=== PATIENT | male | born 1960 | race Caucasian/White ===

== ENCOUNTER → 2019-08-28 13:33 | Outpatient (BNVA) | payer MEDICARE, MEDICAID, SELFPAY | PROVIDERS: PCP Family Medicine; Referring Provider Family Medicine; Visit Provider Student in an Organized Health Care Education/Training Program | DX: T84.028A Dislocation of other internal joint prosthesis, initial encounter; Z96.611 Presence of right artificial shoulder joint; E11.9 Type 2 diabetes mellitus without complications; Z79.4 Long term (current) use of insulin | CPT/HCPCS: 99204; 73030 ==

== ENCOUNTER 2019-08-28 13:49 | Outpatient (CLI) | payer MEDICARE, MEDICAID, SELFPAY ==
--- NOTE | 2019-08-28 13:30 | DI.RAD_ITS ---
EXAM: XR SHOULDER RT COMPLETE 2+V CLINICAL HISTORY: PAIN. TECHNIQUE: 2D digital imaging was performed. COMPARISON: No exams were available for comparison FINDINGS: A humeral prosthesis is seen. There is dislocation of the humeral prosthesis anteriorly and medially with respect to the glenoid. No fracture is identified. There are degenerative changes of the AC j oint and undersurface of the acromion. IMPRESSION: Anteromedial dislocation of the humerus with respect to the glenoid.. DATA REPOSITORY: RADIATION DOSE DELIVERED:
== END 2019-08-28 14:09 ==
PROVIDERS: PCP Family Medicine; Visit Provider Student in an Organized Health Care Education/Training Program
DX: M25.511 Pain in right shoulder (principal); Z96.611 Presence of right artificial shoulder joint; T84.028A Dislocation of other internal joint prosthesis, initial encounter
CPT/HCPCS: 73030

== ENCOUNTER 2023-01-25 14:27 | Outpatient (CLI) | payer MEDICARE, MEDICAID, SELFPAY ==
--- NOTE | 2023-01-25 13:30 | DI.RAD_ITS ---
Exam(s) XR SHOULDER LT COMPLETE 2+V EXAM: XR SHOULDER LT COMPLETE 2+V CLINICAL HISTORY: SHOULDER PAIN. TECHNIQUE: 2D digital imaging was performed of the left shoulder. Two images were obtained. AP and Y views were obtained. 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 There is loss of volu me of the humeral head. The humeral head appears to be posteriorly located relative to the glenoid. The humeral shaft is anteriorly displaced. No bony destructive lesion is seen. JOINTS: The acromioclavicular joint is unremarkable. SOFT TISSUE: Normal. IMPRESSION: 1. 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 The fracture is comm inuted. 2. There is a posterior dislocation of the humeral head relative to the glenoid. The humeral shaft i s superiorly subluxed and anteriorly located relative to the glenoid. DATA REPOSITORY: RADIATION DOSE DELIVERED:
--- NOTE | 2023-01-25 13:30 | DI.RAD_ITS ---
Exam(s) XR SHOULDER RT COMPLETE 2+V EXAM: XR SHOULDER RT COMPLETE 2+V CLINICAL HISTORY: SHOULDER PAIN. TECHNIQUE: 2D digital imaging was performed of the right shoulder. Two images were obtained. AP an d Y views were obtained. COMPARISON: CR XR SHOULDER RT COMPLETE 2+V from 08/28/2019 FINDINGS: BONES: No acute fracture is present. No bony destructive lesion is seen. JOINTS: The patient has a humeral prosthesis. There is anterior dislocation of the humeral prosthesi s relative to the glenoid. The acromioclavicular joint is intact. SOFT TISSUE: Surgical clips are seen lateral to the humerus. IMPRESSION: 1. There is again seen a right humeral prosthesis. 2. There is anterior dislocation of the humeral prosthesis relative to the glenoid. DATA REPOSITORY: RADIATION DOSE DELIVERED:
== END 2023-01-25 14:28 | disposition home or self-care (01) ==
LOC: DIORS 14:27
PROVIDERS: PCP Family Medicine; Referring Provider Family Medicine; Visit Provider Student in an Organized Health Care Education/Training Program
DX: M25.519 Pain in unspecified shoulder (principal); M87.012 Idiopathic aseptic necrosis of left shoulder; Z96.611 Presence of right artificial shoulder joint; T84.028A Dislocation of other internal joint prosthesis, initial encounter
CPT/HCPCS: 99203; 99214; 73030